=== PATIENT | female | born 1960 | race Hispanic/Latino ===

== ENCOUNTER 2024-02-21 21:36 | Observation (INO) | payer OTHER, SELFPAY ==
[2024-02-21] VITALS (9 sets, daily range): BP systolic 106–148; BP diastolic 41–74; BMI 36.8
[2024-02-21 15:47] LABS: % Basophils 0.3 % (0-2); % Eosinophils 1.1 % (0-6); % Immature Granulocytes 0.3 % (0-0.5); % Lymphocytes 41.9 % (20.5-51.1); % Monocytes 6.3 % (1.7-9.3); % Neutrophils 50.1 % (42.2-75.2); Absolute Eosinophils 0.1 10^3/uL (0-0.7); Absolute Lymphocytes 3.1 10^3/uL (1.2-3.4); Absolute Monocytes 0.5 10^3/uL (0.1-0.6); Absolute Neutrophils 3.7 10^3/uL (1.4-6.5); Hematocrit 45.2 % (37.0-47.0); Hemoglobin 14.5 g/dL (12.0-16.0); Mean Corp Hgb Conc. 32.1 g/dL (33.0-37.0); Mean Corpuscular Hgb 28.5 pg (27.0-31.0); Mean Corpuscular Volume 88.8 fL (81.0-99.0); Nucleated Red Blood Cells % 0 %; Platelet Count 228 10^3/uL (130-400); Red Blood Cell Count 5.09 10^6/uL (4.20-5.40); Red Cell Dist. Width 14.3 % (11.5-14.5); White Blood Cell Count 7.3 10^3/uL (4.8-10.8)
[2024-02-21 16:06] LABS: ALT (SGPT) 14 U/L (0-35); AST (SGOT) 23 U/L (14-36); Albumin 4.1 g/dl (3.5-5.0); Alkaline Phosphatase 80 U/L (38-126); Blood Urea Nitrogen 17 mg/dl (7-17); Calcium 9.4 mg/dl (8.4-10.2); Carbon Dioxide 24 mmol/L (22-30); Chloride 108 mmol/L (98-107); Estimated Creatinine Clearance 62 ml/min; Glucose 95 mg/dl (70-99); Potassium 4.2 mmol/L (3.5-5.1); Sodium 140 mmol/L (135-145); Total Bilirubin 0.6 mg/dl (0.2-1.3); Total Protein 6.9 g/dl (6.3-8.2); eGFR > 60.00
[2024-02-21 16:11] LABS: Troponin I < 0.012 ng/ml
--- NOTE | 2024-02-21 16:11 | ED.GENMED ---
History of Present Illness
<Kassandra Garsia PA-C - Last Filed: 02/21/24 21:02>
General
Chief Complaint: Chest Pain
Source: patient
Exam Limitations: none
Time Seen by Provider: 02/21/24 16:08
Nursing documentation reviewed up to this point in time: agreed with
Travel History
Have you had any contact with someone who has COVID-19?: No
Do you have any symptoms of coronavirus? Fever > 100 degrees, chills, cough, shortness of breath, sore throat, loss of taste or smell, muscle aches, or headache?: No
History of Present Illness
History of Present Illness:
This is a 63-year-old female with a past medical history of coronary artery disease, CVA, COPD, GERD who is presenting emergency department today with chest pain shortness of breath and nausea throughout the day today. Patient states that she has a
history of coronary artery disease and had a coronary artery bypass graft done last year on March 19. Patient states that she had mild chest pain after that but for months she felt well until today when she started to have a significant mount of
chest pressure around 9 AM this morning and it has been constant. Patient states that it gets worse with movement. Patient also has associated nausea, and a general sensation of feeling unwell and weak. EMS was called and patient got aspirin and
1 nitro en route which did help relieve some of her chest pain but her symptoms did return. She now complains of a headache. Patient also admits to right-sided weakness. She states that she has had this for the past 2 weeks, however today is
significantly worse. She feels weakness and paresthesias from her head, the right side of her face, her right arm, and right leg. Patient denies any syncopal episodes, vomiting, abdominal pain.
Review of Systems
<Kassandra Garsia PA-C - Last Filed: 02/21/24 21:02>
Review of Systems
All Other Systems: ROS reviewed and negative except as documented in HPI and ROS
Phy Exam
<Kassandra Garsia PA-C - Last Filed: 02/21/24 21:02>
Physical Exam
Physical Exam:
General: Patient is well appearing and in no acute distress; non-toxic
Skin: Warm and dry, no rashes or lesions
Head: Normocephalic, atraumatic
Eyes: Sclera non-icteric. EOMs intact. PERRLA.
Cardiac: Regular rate and rhythm, no murmurs. No tenderness to palpation of the external chest wall.
Peripheral Vascular: No lower extremity edema. 2+ DP pulses b/l.
Pulm: Normal respiratory effort, no wheezes, rales, or rhonchi heard on exam.
Abdomen: No abdominal tenderness
Neuro: CN II-XII intact, no focal neurologic deficits. Finger to nose, heel to aldana testing intact. 4/5 strength in right upper and lower extremity, 5/5 strength in left upper and left lower extremity.
Psychiatric: Appropriate mood and affect.
Scores
<Kassandra Garsia PA-C - Last Filed: 02/21/24 21:02>
Heart Score for Chest Pain Patients
STEMI patient?: No
History: Moderately Suspicious
ECG: Normal
Age: >45 - <65 years
Risk Factors: >/= 3 Risk Factors or History of CAD
Troponin: </= Normal Limit
Heart Score for Chest Pain Patients: 4
Heart Score Risk: 20.3% MACE over next 6 weeks
<Gael Marie MD - Last Filed: 02/22/24 14:49>
Heart Score for Chest Pain Patients
Heart Score for Chest Pain Patients: 4
Heart Score Risk: 20.3% MACE over next 6 weeks
Course
<Kassandra Garsia PA-C - Last Filed: 02/21/24 21:02>
Orders/Labs/Results
Orders:
Orders
05/02/24 Dinner
NPO
Allow oral meds: Yes
Allow clear liquids: Sips of Clears
NPO with Ice Chips: Yes
02/21/24 15:35
Electrocardiogram (*1) Urgent
Reason for Study: Chest Pain
EKG- Treatment ONCE
02/21/24 15:39
Complete Blood Count/With Diff Urgent
Comprehensive Metabolic Panel Urgent
Glycohemoglobin (HgbA1c) Urgent
Troponin I Urgent
02/21/24 16:33
CT Head W/o Iv Contrast Urgent
Comment:
Reason For Exam: right sided weakness
02/21/24 16:34
EKG- Treatment ONCE
02/21/24 17:12
Acetaminophen [Tylenol] 1,000 mg PO NOW STA
02/21/24 18:27
Troponin I Urgent
02/21/24 18:29
Electrocardiogram (*1) Urgent
Reason for Study: Chest Pain
02/21/24 19:27
Aspirin 325 mg PO NOW STA
Clopidogrel Bisulfate [Plavix] 300 mg PO NOW STA
02/21/24 20:39
Mag Hydrox/Al Hydrox/Simeth [Maalox] 30 ml Phenobarb/Hyoscy/Atropine/Scop [] 10 ml Viscous Lidocaine 2% [Xylocaine Viscous Cup] 10 ml PO NOW
02/21/24 20:40
NEUROLOGY CONSULT Routine
Consulting Provider: Jorge Peng
Was physician already notified: Yes
Reason for consult: right sided wekaness x 2 weeks
Pantoprazole [Protonix IV] 40 mg IV NOW STA
02/21/24 20:41
Admit/Transfer Patient As Directed
Co-Sign Provider:
Level of Care: Observation services
Assign to:: Telemetry
Physician / Group: patricia martinez
Diagnosis: chest pain concern gerd vs nonischemic, r side weakness concern cva tia
Reason for Telemetry: Arrhythmia
Date to Stop Telemetry: 02/24/24
Time to Stop Telemetry: 11:00
Reason for Hospitalization: chest pain concern gerd vs nonischemic, r side weakness concern cva tia
Code Status As Directed
Resuscitation Status: Full Code
02/21/24 20:49
0.9% Sodium Chloride [Nss (Preservative Free)] 10 ml IV NOW STA
02/21/24 21:26
Mag Hydrox/Al Hydrox/Simeth [Maalox] 30 ml .ROUTE .STK-MED ONE
Phenobarb/Hyoscy/Atropine/Scop [] 10 ml .ROUTE .STK-MED ONE
Viscous Lidocaine 2% [Xylocaine Viscous Cup] 15 ml .ROUTE .STK-MED ONE
02/21/24 21:33
Troponin I Q6H
02/21/24 22:00
Flush (0.9% Sodium Chloride) [Flush (Nss)] See Dose Instructions IV PER PROTOCOL
02/21/24 23:20
Acetaminophen [Tylenol/Feverall] 650 mg RECTAL Q4HPRN PRN
Acetaminophen [Tylenol] 650 mg PO Q4HPRN PRN
02/21/24 23:20
Case Management Consult ONCE
Case Management Consult: Discharge Planning
Comment: stroke/tia
DIETARY CONSULT Routine
Reason for Consult: stroke/TIA
Activity As Directed
Activity Level: As Tolerated
NIH Stroke Scale As Directed
Directions: Per protocol
Comment: every shift and with any change in condition or mental status
Neurological Checks As Directed
Frequency: q4h
Additional Instructions:: q4h x 24h upon admission to the floor, then qshift & with any change in condition
and mental status
Patient Education As Directed
Type: Stroke education packet
Comment: provide to patient and family
Pneumatic Compression Sleeves As Directed
Type: Knee high
Vital Signs As Directed
Frequency: Per unit guidelines
Ot Eval And Treat Routine
Pt Eval And Treat Routine
Activity Level: As Tolerated
Speech Therapy Eval & Treat Routine
DX Deep Vein Thrombosis Video Routine
02/22/24 05:12
B12 [Vitamin B12] IN AM
Cardiovascular Evaluation IN AM
Complete Blood Count/With Diff IN AM
VerifyNow Aspirin IN AM
Pt on daily regimen OR been given initial dose of aspirin?: Yes
02/22/24 08:00
0.9% Sodium Chloride [Nss (Preservative Free)] 10 ml IV DAILY
Aspirin Chewable [Low Strength Aspirin] 81 mg PO DAILY
Clopidogrel Bisulfate [Plavix] 75 mg PO DAILY
Pantoprazole [Protonix IV] 40 mg IV DAILY
02/24/24 11:00
DC Protocol for Telemetry ONCE
Abnormal Lab Results
02/21/24
15:39
MCHC 32.1 L g/dL
(33.0-37.0)
MPV 11.0 H fL
(7.4-10.4)
Chloride 108 H mmol/L
(98-107)
Hemoglobin A1c 6.0 H %
(4.0-5.6)
02/21/24 15:39
02/21/24 15:39
Vital Signs
Initial and Last Documented VS:
Initial Vital Signs
Pulse Resp Pulse Ox
72 20 96
02/21/24 15:39 02/21/24 15:39 02/21/24 15:39
Last Documented Vital Signs
Temp Pulse Resp BP Pulse Ox
98.4 F 60 16 154/82 100
02/22/24 12:56 02/22/24 12:56 02/22/24 12:56 02/22/24 12:56 02/22/24 12:56
<Gael Marie MD - Last Filed: 02/22/24 14:49>
Orders/Labs/Results
Orders:
Orders
02/21/24 Dinner
NPO
Allow oral meds: Yes
Allow clear liquids: Sips of Clears
NPO with Ice Chips: Yes
02/21/24 15:35
Electrocardiogram (*1) Urgent
Reason for Study: Chest Pain
EKG- Treatment ONCE
02/21/24 15:39
Complete Blood Count/With Diff Urgent
Comprehensive Metabolic Panel Urgent
Glycohemoglobin (HgbA1c) Urgent
Troponin I Urgent
02/21/24 16:33
CT Head W/o Iv Contrast Urgent
Comment:
Reason For Exam: right sided weakness
02/21/24 16:34
EKG- Treatment ONCE
02/21/24 17:12
Acetaminophen [Tylenol] 1,000 mg PO NOW STA
02/21/24 18:27
Troponin I Urgent
02/21/24 18:29
Electrocardiogram (*1) Urgent
Reason for Study: Chest Pain
02/21/24 19:27
Aspirin 325 mg PO NOW STA
Clopidogrel Bisulfate [Plavix] 300 mg PO NOW STA
02/21/24 20:39
Mag Hydrox/Al Hydrox/Simeth [Maalox] 30 ml Phenobarb/Hyoscy/Atropine/Scop [] 10 ml Viscous Lidocaine 2% [Xylocaine Viscous Cup] 10 ml PO NOW
02/21/24 20:40
NEUROLOGY CONSULT Routine
Consulting Provider: Jorge Peng
Was physician already notified: Yes
Reason for consult: right sided wekaness x 2 weeks
Pantoprazole [Protonix IV] 40 mg IV NOW STA
02/21/24 20:41
Admit/Transfer Patient As Directed
Co-Sign Provider:
Level of Care: Observation services
Assign to:: Telemetry
Physician / Group: patricia martinez
Diagnosis: chest pain concern gerd vs nonischemic, r side weakness concern cva tia
Reason for Telemetry: Arrhythmia
Date to Stop Telemetry: 02/24/24
Time to Stop Telemetry: 11:00
Reason for Hospitalization: chest pain concern gerd vs nonischemic, r side weakness concern cva tia
Code Status As Directed
Resuscitation Status: Full Code
02/21/24 20:49
0.9% Sodium Chloride [Nss (Preservative Free)] 10 ml IV NOW STA
02/21/24 21:26
Mag Hydrox/Al Hydrox/Simeth [Maalox] 30 ml .ROUTE .STK-MED ONE
Phenobarb/Hyoscy/Atropine/Scop [] 10 ml .ROUTE .STK-MED ONE
Viscous Lidocaine 2% [Xylocaine Viscous Cup] 15 ml .ROUTE .STK-MED ONE
02/21/24 21:33
Troponin I Q6H
02/21/24 22:00
Flush (0.9% Sodium Chloride) [Flush (Nss)] See Dose Instructions IV PER PROTOCOL
02/21/24 23:20
Acetaminophen [Tylenol/Feverall] 650 mg RECTAL Q4HPRN PRN
Acetaminophen [Tylenol] 650 mg PO Q4HPRN PRN
02/21/24 23:20
Case Management Consult ONCE
Case Management Consult: Discharge Planning
Comment: stroke/tia
DIETARY CONSULT Routine
Reason for Consult: stroke/TIA
Activity As Directed
Activity Level: As Tolerated
NIH Stroke Scale As Directed
Directions: Per protocol
Comment: every shift and with any change in condition or mental status
Neurological Checks As Directed
Frequency: q4h
Additional Instructions:: q4h x 24h upon admission to the floor, then qshift & with any change in condition
and mental status
Patient Education As Directed
Type: Stroke education packet
Comment: provide to patient and family
Pneumatic Compression Sleeves As Directed
Type: Knee high
Vital Signs As Directed
Frequency: Per unit guidelines
Ot Eval And Treat Routine
Pt Eval And Treat Routine
Activity Level: As Tolerated
Speech Therapy Eval & Treat Routine
DX Deep Vein Thrombosis Video Routine
02/22/24 05:12
B12 [Vitamin B12] IN AM
Cardiovascular Evaluation IN AM
Complete Blood Count/With Diff IN AM
VerifyNow Aspirin IN AM
Pt on daily regimen OR been given initial dose of aspirin?: Yes
02/22/24 08:00
0.9% Sodium Chloride [Nss (Preservative Free)] 10 ml IV DAILY
Aspirin Chewable [Low Strength Aspirin] 81 mg PO DAILY
Clopidogrel Bisulfate [Plavix] 75 mg PO DAILY
Pantoprazole [Protonix IV] 40 mg IV DAILY
02/24/24 11:00
DC Protocol for Telemetry ONCE
Abnormal Lab Results
02/21/24
15:39
MCHC 32.1 L g/dL
(33.0-37.0)
MPV 11.0 H fL
(7.4-10.4)
Chloride 108 H mmol/L
(98-107)
Hemoglobin A1c 6.0 H %
(4.0-5.6)
02/21/24 15:39
02/21/24 15:39
Vital Signs
Initial and Last Documented VS:
Initial Vital Signs
Pulse Resp Pulse Ox
72 20 96
02/21/24 15:39 02/21/24 15:39 02/21/24 15:39
Last Documented Vital Signs
Temp Pulse Resp BP Pulse Ox
98.4 F 60 16 154/82 100
02/22/24 12:56 02/22/24 12:56 02/22/24 12:56 02/22/24 12:56 02/22/24 12:56
<Kassandra Garsia PA-C - Last Filed: 02/21/24 21:02>
MDM/Problems Addressed
Differential Diagnosis Includes:
ddx include ACS, stroke, TIA, tension headache, pulmonary embolism, functional neurologic disorder,
<Kassandra Garsia PA-C - Last Filed: 02/21/24 21:02>
*Critical Care Note
Total Time (30-74mins, 75-104mins- exclusive of procedures): Not Applicable
<Kassandra Garsia PA-C - Last Filed: 02/21/24 21:02>
Patient Management
Escalation/DeEscalation of care consider admission/obs:
This is a 63-year-old female with a past medical history of coronary artery disease, CVA, COPD, GERD who is presenting emergency department today with chest pain shortness of breath and nausea throughout the day today. Patient is also had 2 weeks
of right-sided weakness and paresthesias that got significantly worse today. Patient on exam does have objective right-sided weakness, regular rate and rhythm, no tenderness palpation external chest wall. Her initial EKGs and troponins were within
normal limits. Concerning for unstable angina, considering she had similar pain last year prior to her CABG. Considering her significant risk factors, we will admit her to the hospital for further cardiac workup. In addition, I spoke with
neurologist on-call via [place] text regarding her right-sided weakness. Patient was placed on aspirin and Plavix. Neuro aware and did not recommend any additional imaging or workup at this time, he will see patient in consult. Patient agreement
with plan. Accepted by hospitalist.
ED Attending Note
<Kassandra Garsia PA-C - Last Filed: 02/21/24 21:02>
-
Portions of this chart may have been created with voice recognition software.� Occasional wrong word or��sound alike� substitutions may have occurred due to the inherent limitations of voice recognition software.
<Gael Marie MD - Last Filed: 02/22/24 14:49>
ED Attending Note
Patient seen and examined by attending physician: Yes
ED Attending Note:
Patient with history of TIA, coronary artery disease, status post CABG in February 2023, presents to ED secondary to intermittent chest pain since this morning, along with worsening right-sided numbness and weakness over the past 2 weeks. In addition,
family endorses intermittent episodes of word finding difficulties. Patient denies shortness of breath. Denies nausea or vomiting. Denies diaphoresis. Chest pain described as pressure, in the middle of chest, nonradiating, without any
alleviating or exacerbating factors. Patient was given sublingual nitroglycerin by paramedics, with improvement in symptoms. Denies recent illness. Denies recent travel or surgery. Denies recent change in medications or diet. Patient is
currently visiting from [facility].
Physical Exam
General: no apparent distress, not acutely ill. afebrile
Head: nc/at. eomi
Neck: supple. normal range of motion.
Heart: s1/s2 regular rate and rhythm, no murmur. equal radial pulses.
Lungs: no acute respiratory distress. clear bilaterally. chest wall nontender to palpation.
Abdomen: normal bowel sounds. not tender.
Neuro: alert and oriented x 3. normal speech. RUE/RLE motor: 4/5. Decreased sensation RUE/RLE.
Skin: no rash
Psychiatric: well kept. interactive and cooperative
Extremities: no edema. no calf tenderness.
Patient presenting with multiple complaints, difficult to ascertain whether or not her symptoms are related or independent when allowed. However, patient does have significant risk factors for both CVA as well as ACS.
CT head: Old infarct noted.
Discussed with Dr. Peng, neurology, who recommends admission for further evaluation and treatment. Will start aspirin and Plavix.
Patient is not a candidate for tenecteplase, as symptoms have started over 2 weeks ago.
Discharge Plan
Departure
Patient Disposition: Admit
Date of Disposition: 02/21/24
Time of Disposition: 19:49
Admit to: Med/Surg
Presentation/result/management discussed w/ accepting MD/DO: Hospitalist
Patient with high blood pressure during this ER visit?: Yes
Condition: Fair
Discharge Problem:
Chest pain, Right sided weakness
Interventions
Interventions:
*Risk Screen - Suicide Last Done: 02/21/24 15:47
*General Assessment Last Done: 02/21/24 15:46
*Neglect/Abuse Screening Last Done: 02/21/24 15:47
ED- Fall Risk Assessment Last Done: 02/21/24 17:28
*ED COVID-19 Vaccine History Last Done: 02/22/24 00:08
*Nursing Disposition Last Done: 02/22/24 12:36
ED- Cardiac Assessment Last Done: 02/21/24 17:27
Discharge Date and Time
Discharge Date/Time: 02/22/24 12:36
[2024-02-21] MEDS: TYLENOL 1000 MG PO (17:21)
[2024-02-21 18:55] LABS: Troponin I < 0.012 ng/ml
[2024-02-21] MEDS: PLAVIX 300 MG PO (19:35)
--- NOTE | 2024-02-21 19:59 | HPS.HSE ---
Addendum entered and electronically signed by Fadi Balderrama DO 02/21/24 21:42:
Patient seen and examined independently. Agree with findings and plan as set forth by AUTUMN Hayes.
Patient is a 63y F with PMH significant for ASCVD s/p CABG 1 year ago, PTSD and obesity who presents to ED complaining of 2 weeks of right-sided numbness and tingling and chest pain that has been intermittent for some time - but seemed worse
today. Patient lives in the [facility] and has been seen previously in the [facility]. Today while experiencing her symptoms, she decided to go for a drive and ended up here at .
Despite driving for hours, patient now reports significant weakness of her R side including the RLE. She notes intermittent chest pain - currently 03/31. She has known Schatzki's ring and GERD but is not compliant with prescribed acid suppression
regimen. She is scheduled for GI evaluation / endoscopy later this month.
In the ED today, EKG is unremarkable, troponin is undetectable x [address] head shows no acute findings - but does show area of L cerebellar abnormality c/w prior CVA.
Ass:
Atypical Chest Pain
ASCVD
Right Sided Weakness
Abnormal CT Head
DM-II
GERD
Anxiety / Depression / PTSD
Obesity due to excess calories
Plan:
Observe overnight for further evaluation and treatment.
Follow serial troponin for any changes (neg x 2 so far).
? GI origin for her chest pain - but does have prior history of CABG one year ago.
MRI in AM. CT images with L cerebellar abnormality which could explain her R sided symptoms?
Neuro evaluation.
Follow for any new / worsening symptoms.
Continue DAPT for now.
PT / OT evaluations.
Original Note:
Family Physician
-
Family Physician: Donavan Sewell
Chief Complaint
-
Chest pain, right-sided weakness x 2 weeks
History of Present Illness
63-year-old female complaining of chest pain epigastric to neck she reports this feels similar to her chest pain she had last year mar 19 2023 that required CABG at [facility]. She also complains of right-sided paresthesias and weakness
ongoing for the past 2 weeks. She states she lives in [facility] today she felt weak weakness on the side of her face again her asked her to smile told her she was fine. She states she then got in the car to take a drive
during her drive that lasted over 1 hour from where she lives. She developed epigastric chest pain to her neck waxing and waning with nausea. She states the pain was so intense that she had an overall sense of weakness. She currently reports the
pain is6 out of 10 but is calm in appearance no diaphoresis. She has history of GERD but is noncompliant with any medication. She states she saw ENT due to having difficulty swallowing some pills and made an appointment with GI for EGD at . [facility] on March 14. She denies current headache, blurred vision, dizziness, shortness breath, cough, diarrhea, urinary symptoms, fever, chills . The patient reports in April 2021 she had a lightheaded sensation if she turned her head to
the left she reports a doctor came to the hotel she was staying at evaluated her and gave her an injection to help her relax. This was while she was in the [facility]. Upon returning she went to [facility] had MRI May 21, 2021
that was negative for stroke. It did show 3 mm calcified focus right frontal region compatible with small meningioma
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
Medical History
Past Medical History
Past Medical History: Reports Other
Additional Past Medical History:
CAD/CABG February 2023 [facility]
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
COPD
GERD
anxiety/depression/ PTSD
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
Obesity
Past Surgical History: Reports Other
Additional Past Surgical History:
[facility]
Hysterectomy
Appendectomy
Social History
Tobacco: Non-smoker
Alcohol: Occasional
Drug: None
Personal:
Living: With Family ()
Employment: Retired ()
Family History
Family History: Other (Mother father 3 sisters 3 brothers all history DM2, 1 sister age 47 unknown history of COPD bedridden, father living age 95 recent AR with stent, mother CVA x 2 EGD 6 hypertension DM2)
Allergies / Home Medications
Allergies reflects when Allergies were last updated in [employer]
Home Medications with original date entered in [employer]
Allergy/Medication List:
Allergies
Allergy/AdvReac Type Severity Reaction Status Date / Time
propofol Allergy Unknown Verified 02/21/24 15:36
Oiubkpe-AEA-TwK Reductase Allergy Unknown Verified 02/21/24 15:36
Inhibitor
Home Medications
Praluent Pen 1 dose SC Q2W 02/21/24
ascorbic acid (vitamin C) 2.5 ml PO DAILY AT 0700 02/21/24
aspirin 81 mg chewable tablet 81 mg PO DAILY 02/21/24
metformin 500 mg tablet 500 mg PO DAILY 02/21/24
vitamin Y44-ncdkt acid 1,000 mcg sublingual DAILY 02/21/24
Review of Systems
-
History Source: Patient
A 12 point ROS was completed and negative except as noted: Yes
Constitutional: Denies Fever or Chills
EENT: Reports Other (Right side face numbness/tingling); Denies Sore Throat or Runny Nose
Respiratory: Denies Cough or Trouble Breathing
Cardiac: Reports Chest Pain (Epigastric); Denies Diaphoresis, Palpitations or Syncope
Abdomen/GI: Reports Abdominal Pain (Epigastric) and Nausea; Denies Vomiting, Diarrhea, Constipated or Bloody Stools
: Denies Dysuria, Frequency, Flank Pain, Incontinence or Difficulty Voiding
Musculoskeletal: Denies Joint Pain or Edema
Skin: Denies Itching or Rash
Neurological: Reports Weakness (Reports generalized); Denies Dizzy or Headache
Endocrine: Reports No Symptoms
Hematologic/Lymphatic: Reports No Symptoms
Psych: Reports Calm
Physical Exam
Vital Signs
Vital Signs
Temp Pulse Resp BP Pulse Ox
98.6 F 64 15 127/64 98
02/21/24 15:41 02/21/24 17:30 02/21/24 17:30 02/21/24 17:04 02/21/24 17:30
Physical Exam
General: Comfortable, Conversant and Pain (Reports pain on and off); No Chills
HEENT: NormoCephalic, Anicteric, Moist mucous membranes, PERRLA, Dowell Conjunctivae, No Ptosis, Pharyngeal Efythema, Neck Nontender and Other (Tongue midline, EOMs intact)
Respiratory: Clear; No Wheezes, Rales or Rhonchi
Cardiac: S1/S2 and Regular Rhythm; No Murmur, Rub, Gallop or Peripheral Edema
Breast: Deferred by me
GI: Soft, Non Tender, Non Distended, Normal Bowel Sounds and No Hepatosplenomegaly
Rectal: Deferred by Provider
Genito-urinary: Deferred by me
Musculoskeletal: No Clubbing, No Cyanosis and No Edema
Skin: Warm, Dry and Rash
Neuro: AO x 3, Nonfocal/grossly intact, Cranial Nerves Intact, No Sensory Deficits and Other (Patient with right arm and right leg weakness 4 out of 5 but when distracted examination is normal); No Slurred Speech, Facial Droop or Tremors
Psych: Calm
Laboratory Results
-
02/21/24 15:39
02/21/24 15:39
Laboratory Results
Total Bilirubin 0.6 mg/dl (0.2-1.3) 02/21/24 15:39
AST 23 U/L (14-36) 02/21/24 15:39
ALT 14 U/L (0-35) 02/21/24 15:39
Alkaline Phosphatase 80 U/L (38-126) 02/21/24 15:39
Troponin I < 0.012 ng/ml 02/21/24 18:27
Data Reviewed
-
CT Scan: Report Reviewed by me
Lab Data: Labs Reviewed by me
Impression/Plan
-
Impression/plan:
Observation telemetry
#Chest pain/nonischemic myocardial injury concern for gerd
#CAD/CABG x [address] [facility]
Troponin less than 0.012 will trend
Follow EKG
-Consult CBC cardiology
-Will give GI cocktail
-Continue aspirin 81 mg daily, patient on Praluent pen every 2 week
-Reports cannot take metoprolol as it makes her feel palpitations
EKG: NSR with sinus arrhythmia 65 bpm, QTc 438 MS otherwise normal
#Right-sided weakness/paresthesia concern for CVA/TIA
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
BP 127/64
Symptoms x 2 weeks not tPA candidate
-Consult neurology
-MRI/MRA brain neck
-Neurochecks every 4 hours
-Check lipid profile, HgbA1c
-Aspirin 324 mg now, 81 mg daily, verify aspirin
-Plavix 300 mg now, 75 mg daily
-Check B12 level
-PT/OT/case management consult
CT head: No acute intracranial abnormality
4 mm focus diminished attenuation left cerebellum related to prior small chronic infarct
5 mm calcification anterior superior right paramidline frontal region possibly osseous/Exostosis or extra-axial meningioma
Review of patient's MRI May 21, 2021 from [facility]: No acute infarct, nonspecific minimal white matter T2 foci related to chronic small vessel disease, 3 mm calcified focus in the anterior right frontal region with a small meningioma without mass
effect or edema chronic maxillary sinus disease
#DM2
-Accu-Cheks with SSI, check HgbA1c
-Hold metformin 500 mg daily
#HLD
Check lipid profile
-Patient takes Praluent pen 1 dose every 2 weeks last dose 02/07/2024
#COPD-no acute exacerbation
Reports never smoker was told 20 years ago she had this
#GERD
-Noncompliant with PPI or H2 edmond
Will give IV Protonix now and daily including GI cocktail
#Anxiety/depression/ PTSD
-No current medication
#Vitamin B12 deficiency reported
Patient takes sublingual B12 daily and vitamin C 2.5 mL / 500 mg daily
Check B12 level
#Obesity due to excess calorie consumption�BMI 36.8 kg
Weight loss recommended, low-fat diabetic diet
DVT prophylaxis
SCDs
Full code
[2024-02-21] MEDS: PROTONIX IV 40 MG IV (21:27)
[2024-02-21] MEDS: MAALOX 50 PO (21:27)
[2024-02-21 22:08] LABS: Troponin I < 0.012 ng/ml
[2024-02-21] MEDS: NSS (PRESERVATIVE FREE) 10 ML IV (23:11)
[2024-02-22] VITALS (12 sets, daily range): BP systolic 111–154; BP diastolic 47–82; PULSE 58; O2SAT 97; BMI 35.9
[2024-02-22 05:21] LABS: % Basophils 0.3 % (0-2); % Eosinophils 1.4 % (0-6); % Immature Granulocytes 0.5 % (0-0.5); % Lymphocytes 44.9 % (20.5-51.1); % Monocytes 7.4 % (1.7-9.3); % Neutrophils 45.5 % (42.2-75.2); Absolute Eosinophils 0.1 10^3/uL (0-0.7); Absolute Lymphocytes 2.9 10^3/uL (1.2-3.4); Absolute Monocytes 0.5 10^3/uL (0.1-0.6); Hematocrit 40.2 % (37.0-47.0); Hemoglobin 13.2 g/dL (12.0-16.0); Mean Corp Hgb Conc. 32.8 g/dL (33.0-37.0); Mean Corpuscular Hgb 28.9 pg (27.0-31.0); Mean Platelet Volume 11.2 fL (7.4-10.4); Nucleated Red Blood Cells % 0 %; Platelet Count 217 10^3/uL (130-400); Red Blood Cell Count 4.57 10^6/uL (4.20-5.40); Red Cell Dist. Width 14.3 % (11.5-14.5); White Blood Cell Count 6.5 10^3/uL (4.8-10.8)
[2024-02-22 05:54] LABS: HDL Cholesterol 52 mg/dl; LDL Cholesterol, Calculated 87 mg/dl; Total Cholesterol 161 mg/dl (50-199); Triglyceride 112 mg/dl (10-149); Very Low Density Lipoprotein 22 mg/dl (0-30)
[2024-02-22 06:42] LABS: Vitamin B12 916 pg/ml (239-931)
--- NOTE | 2024-02-22 07:56 | CON.NEURO4 ---
Addendum entered and electronically signed by Jorge Peng MD 02/22/24 12:13:
I saw and evaluate the patient I reviewed the note by Sylvia Jones agree the findings the following comments:
The patient is a right handed 63-year-old woman with a past medical history of hkb-dumfaay-crsjtbrtz diabetes mellitus, history of migraine headaches with aura, possible TIA previously, coronary artery disease status post CABG, complex regional pain
syndrome on the right shoulder, and GERD who presents to the hospital with intermittent symptoms of right arm and leg weakness and sensory change along with sensory change to right side of face, in addition to uncomfortable burning sensation in the
head and brain.
Patient reports she had some difficulty remembering the exact circumstances of the symptoms starting but does not recall any obvious illness or inciting traumatic or stressful event. Her symptoms began around 2 weeks ago and felt like they happened
while she was sleeping. Is difficult for the patient to describe but she just had a feeling of feeling unwell in general. She began to experience heaviness on the right arm and leg which was intermittent, intermittent right-sided face and scalp
paresthesia as well. She had a very uncomfortable feeling of feeling like her head or brain is on fire and this seems to worsen with thinking hard. She does feel like there is a mild discomfort to light as well as some degree of phonophobia and
nausea but no vomiting she reports that Sunday earlier this week seem to be a good day without much symptoms. She went for a drive this morning says that sometimes makes her feel better and when she was in a local store felt like she needed to
seek medical attention when talking with one of the staff members there.
She takes aspirin every day avoids NSAIDs. [place] years [place] she reports around 6 days of dizziness and walking difficulty was told that this was possibly a TIA.
She describes a history of significantly disabling migraine headaches in the past when she did have some vision changes, photophobia phonophobia nausea and severe headache pain.. She had previously been tried on a couple of triptan medications
including Imitrex and Maxalt and topiramate as well. Reports having had evaluation by neurologist previously for some right-sided and left-sided hand paresthesias and was diagnosed with minor carpal tunnel syndrome.
Reports she feels like her health has not been very good for a few months now.
She reports being diagnosed with complex regional pain syndrome on the right shoulder after shoulder surgery.
Neurologic examination shows normal mental status, no aphasia, praxis normal, adequate historian, fair insight.
Cranial nerve examination shows normal cranial nerves II through XII there is no facial asymmetry or dysarthria or sensory change to light touch in the face.
Motor examination shows normal bulk and tone with some obvious downward drift of the right arm and some weakness of shoulder abduction and arm flexion, dog food dough mixer strength is normal, there is some weakness 4/5 to hip flexion. Patient shows positive
Murray sign on the right leg with ability to extend the leg into the bed with full strength when lifting the left leg and hip flexion, but on direct confrontation of right hip extension into the bed has some weakness. Reflexes 2+ biceps triceps
brachialis and patella, subjective decreased light touch on the right arm. Weakness limits finger-nose testing in the right arm no ataxia in the left arm finger-nose testing.
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 Possibly a right-sided parasagittal meningioma as seen with calcification in that area.
Assessment: Rule out ischemic stroke on the left side of the brain. Cerebellar infarct on the left would not produce the symptoms.
I suspect that either migraine type disorder and additionally functional neurologic disorder may be present, possibly triggered by chest pain history of right sided shoulder complex regional pain syndrome.
Recommendations
-Continue DAPT therapy for now, if brain MRI is negative for acute stroke then can stop clopidogrel from a neurologic perspective as this is not TIA
-Would start standing Tylenol 1000 mg every 6 hours for the next 1 to 2 days, give 1 dose 10 mg Compazine
-If MRI brain is negative for acute stroke then would give 50 mg sumatriptan p.o., can repeat the dose once after 2 hours if there is still some degree of burning head pain present
-Discussed the possibility for functional neurologic disorder and that this is treatable mainly with physical therapy
-Evaluation for chest pain
-Video swallow examination study results noted
Will follow up after MRI studies
Original Note:
Documented by User: Sylvia Darling NP 02/22/24 11:37
Consultation - Neurology 4
-
CONSULTING PHYSICIAN: Berry Peng MD
REFERRING PHYSICIAN: Hospitalists/AUTUMN Hayes
DICTATED BY: AUTUMN Nielsen
DATE/TIME OF REQUEST: 02/21/24
DATE/TIME OF CONSULTATION: 02/22/24
Reason for Consultation: Right-sided weakness
History of Present Illness:
This is a 63-year-old right-handed female who has presented to the hospital on 02/21/24 with report of two weeks of right-sided weakness and tingling, and acute onset chest pain and nausea. Patient reports that about two weeks ago she noticed that
her right arm and leg felt weak/heavy compared to her left side. She also notes a couple instances of right arm tingling at night. Yesterday (02/21/24), she reports that her right arm and leg suddenly felt much weaker. They feel heavy/foreign to her
and she had a hard time lifting her arm to brush her teeth. She also noted a new tingling/cold sensation on the right face. She had chest discomfort and nausea but not vomiting, which felt similar to symptoms leading up to her CABG in February 2023,
which prompted her to come to the ER for evaluation. CT head was obtained on arrival and is negative for any acute abnormalities but demonstrates a possible scar in her left cerebellum and a possible right frontal meningioma. She is not a candidate
for TNK/IAT due to outside of time window. She was taking aspirin 81mg daily for cardiac purposes. She was loaded with DAPT in the ER.
Currently she reports a burning sensation deep in her left central brain. Thinking/concentrating makes this discomfort worse. She notes having this 'brain fire' sensation twice before in the past two weeks. She notes mild photophobia and
hypersensitivity to sounds. She denies any dizziness, vision changes, speech difficulty, shortness of breath, and palpitations. She notes several years of swallow difficulty/feeling that food gets stuck in her esophagus. She also notes a significant
history of migraine starting at age 12. Her migraines were associated with photo/phonophobia, nausea, and seeing halos in her vision. Her last migraine was 6 years ago. She never had stroke symptoms with her migraines. She also notes 5-6 days of
balance impairment in 2020 while she was in a [place]. She had an MRI brain two weeks later when she returned to the [place] that was negative, but she was told she may have had a TIA. Her balance seemed to improve after two weeks of
prednisone, meclizine did not help her symptoms.
Past Medical History: TIA 2020, CAD, COPD, NIDDM, GERD/Schatzki ring, anxiety, depression, PTSD, B12 deficiency, CRPS following R RC repair, IBS
Surgical History: CABG x4 02/2023, ROBIN age 26,
Family History: Father, sisters, and brother- migraines. Mother- CVA age 86.
Social History: Denies tobacco and illicit drug use. Rare alcohol.
Allergies: Propofol, statins.
Home Medications: See below.
Review of Symptoms:
Patient denies any fever, headache, chest pain, shortness of breath, GI or symptoms.
�Per the HPI.�All systems are reviewed negative except above.
Physical Exam:
The patient is afebrile, abdomen is nondistended, breathing is unlabored, skin is warm and dry, no edema.
NIH Stroke Scale:
I performed the NIH stroke scale on the patient on 02/22/24 at 0900. The patient scored 3 points on the NIH stroke scale assessment, which were assigned as follows: See below.
Neurologic Examination:
The patient is awake, alert and oriented x 3. She is able to follow commands and answer questions appropriately. There is no aphasia or dysarthria. On cranial nerve assessment, pupils are 3 mm bilateral, round and reactive to light and
accommodation. Visual erickson are full. Extraocular movements are intact. There is no facial asymmetry. Hearing is intact bilaterally to normal conversation volume. Tongue palate and uvula are midline. Sternocleidomastoid strengths are full
bilaterally. Motor strengths are 4+/5 right upper and lower extremities and 5/5 left upper and lower extremities on medical research [place] scale. There is drift in the RUE and RLE. No involuntary movement noted. Deep tendon reflexes are 2+
bilateral upper and lower extremities and Babinski is absent bilaterally. Sensations of pain, touch, temperature and vibration are intact and bilaterally symmetrical. There was no extinction noted on double simultaneous stimulation. Coordination is
intact by finger to nose bilaterally.
Lab Results: See below.
Neuro Imaging:
1. CT Head 02/21/24: No acute intracranial abnormality noted. 4 mm focus of well-defined diminished attenuation/encephalomalacia along superior margin of the left cerebellum. Possibly related to remote trauma or small chronic infarct. 5 mm rounded
focus of calcification in the anterior superior right paramidline frontal region. Possibly osseous/exostosis origin or calcified extra-axial meningioma.
Differentials for the patient's presentation include:
1. Complicated migraine possibly producing symptomatology.
2. Ischemic stroke possibly producing symptoms.
3. Functional neurological disorder possible.
Patient has the following risk factors for their symptoms: CAD, NIDDM, anxiety/stress, hx migraines, family history of migraine.
IV Tenecteplase/IAT candidacy: She is not a candidate for TNK/IAT due to outside of time window.
Recommendations:
-Continue DAPT. If MRI brain is negative for stroke, would discontinue Plavix and continue aspirin 81mg daily only.
-Goal normotension.
-MRI brain noncontrast ordered/pending.
-Provide prochlorperazine 10mg x1 now for headache. Continue Tylenol PRN headache. If MRI is negative for stroke, can provide Imitrex 50mg PO, if still no relief can repeat dose tomorrow and provide a one time dose of IV steroids.
-TTE pending per Cardiology.
-If MRI brain demonstrates a stroke, LDL goal will be <70. LDL is 87.
-Goal normoglycemia, hbA1c is 6.0.
-NIHSS and neurological checks per unit guidelines.
-Provide patient with a stroke education packet.
-PT/OT/ST evaluations.
-DVT prophylaxis.
-Will follow pending results.
Discussed patient care with: Dr. Peng, the patient
Vital Signs and Labs
-
Vital Signs and Labs:
Vital Signs
Temp Pulse Resp BP Pulse Ox
98 F 60 17 130/64 98
02/22/24 07:44 02/22/24 07:44 02/22/24 07:44 02/22/24 07:44 02/22/24 07:44
Lab Results
02/22/24 05:12
02/21/24 15:39
Sodium 140 mmol/L (135-145) 02/21/24 15:39
Potassium 4.2 mmol/L (3.5-5.1) 02/21/24 15:39
BUN 17 mg/dl (7-17) 02/21/24 15:39
Glucose 95 mg/dl (70-99) 02/21/24 15:39
Calcium 9.4 mg/dl (8.4-10.2) 02/21/24 15:39
LDL Cholesterol, Calc 87 mg/dl 02/22/24 05:12
Vitamin B12 916 pg/ml (239-931) 02/22/24 05:12
Medications
-
Active Medications
Generic Name Dose Route Start Last Admin
Trade Name Freq PRN Reason Stop Dose Admin
Acetaminophen 650 mg 02/21/24 23:20
Acetaminophen 650 Mg Rectal Suppository RECTAL 03/20/24 23:19
Q4HPRN PRN
MAHAN, mild pain, or temp >100.4F
Acetaminophen 650 mg 02/21/24 23:20 02/22/24 08:01
Acetaminophen 325 Mg Tablet PO 03/20/24 23:19 650 mg
Q4HPRN PRN Administration
MAHAN, mild pain, or temp >100.4F
Aspirin 81 mg 02/22/24 08:00 02/22/24 08:00
Aspirin 81 Mg Chewable Tablet PO 03/21/24 07:59 81 mg
DAILY EZ Administration
Clopidogrel Bisulfate 75 mg 02/22/24 08:00 02/22/24 08:01
Clopidogrel 75 Mg Tablet PO 03/21/24 07:59 75 mg
DAILY EZ Administration
Pantoprazole Sodium 40 mg 02/22/24 08:00 02/22/24 08:01
Protonix 40 Mg Iv Push IV 03/21/24 07:59 40 mg
DAILY EZ Administration
Sodium Chloride 0 flush 02/21/24 22:00
Sodium Chloride 0.9% (Flush) Syringe IV 03/20/24 21:59
PER PROTOCOL EZ
Sodium Chloride 10 ml 02/22/24 08:00 02/22/24 08:01
Sodium Chloride 0.9% (Preservative Free) 10 Ml Vial IV 03/21/24 07:59 10 ml
DAILY EZ Administration
Home Medications
�Medication �Instructions �Recorded
Methylcobalamin 1,000 mcg PO DAILY 02/22/24
acetaminophen 500 mg tablet 500 mg PO TIDPRN PRN mild pain 02/22/24
(Tylenol Extra Strength)
alirocumab 75 mg/mL subcutaneous 75 mg SC Q2W 02/22/24
pen injector (Praluent Pen)
ascorbic acid-ascorbate 15 ml PO DAILY 02/22/24
calcium-ascorbate sod 500 mg/15 mL
oral liquid (Vitamin C)
aspirin 81 mg chewable tablet 81 mg PO HS 02/22/24
diclofenac epolamine 1.3 % 1 patch topical BID right 02/22/24
transdermal 12 hour patch shoulder/neck
lorazepam 0.5 mg tablet 0.5 mg PO HS 02/22/24
metformin 500 mg tablet 500 mg PO DAILY 02/22/24
tretinoin 0.025 % topical cream 1 applic topical HS face 02/22/24
NIH Stroke Score
Subsequent NIH Scale
Date of Subsequent NIH Scale: 02/22/24
Time of Subsequent NIH Scale: 09:00
NIH Stroke Score
Level of Consciousness: 0 - Alert
LOC Questions: 0-Answers both correctly
LOC Commands: 0-Performs both correctly
Best Horizontal Gaze: 0-Normal
Visual Erickson: 0=Normal, no visual loss
Facial Palsy: 0=Normal, symmetrical
Motor - Right Arm: 1=Drift < 10 seconds
Motor - Left Arm: 0=No drift 10 seconds
Motor - Right Le-Drift < 5 seconds
Motor - Left Le-No drift 5 seconds
Limb Ataxia: 0-Absent
Sensation: 1-Mild loss
Best Language: 0-No aphasia
Dysarthria: 0-Normal
Extinction and Inattention: 0-No abnormality
Total Score:: 3

Documented by User: Jorge Peng MD 02/22/24 12:01
NIH Stroke Score
NIH Stroke Score
Total Score:: 3
[2024-02-22] MEDS: LOW STRENGTH ASPIRIN 81 MG PO (08:00)
[2024-02-22] MEDS: TYLENOL 650 MG PO (08:01)
[2024-02-22] MEDS: PROTONIX IV 40 MG IV (08:01)
[2024-02-22] MEDS: PLAVIX 75 MG PO (08:01)
[2024-02-22] MEDS: NSS (PRESERVATIVE FREE) 10 ML IV (08:01)
[2024-02-22 08:15] LABS: VerifyNow Aspirin 377 ARU
--- NOTE | 2024-02-22 08:18 | PHANOTE ---
02/22/2024, med rec tech, spoke to pt. to obtain their med. history; [facility]; pt. has no [facility] records and this med. is not in pt.'s pharmacy fill data.
--- NOTE | 2024-02-22 08:34 | CON.CAR ---
Addendum entered and electronically signed by Jovany Harrell MD 02/22/24 10:56:
Patient seen and examined in collaboration with DIRECTOR DIVERSITY; agree with below.
-Patient underwent CABG 1 year ago; presenting with atypical, reproducible chest pain to palpation on examination.
-EKG is unremarkable, and cardiac enzymes are normal; no objective signs suggestive of ACS.
-Will obtain an echocardiogram to thoroughly assess baseline cardiac function; however, results will not change current recommendations/management.
-Continue current cardiac medications; patient can follow-up with her primary Mot[employer] as scheduled.
Original Note:
Consultation
Consultation Request
Date/Time Consultation Requested: 02/21/24 10p
Date/Time Consultation Performed: 02/22/24 8a
Requesting Provider: AUTUMN Hayes
Performing Provider: AUTUMN Herman for Dr. Harrell
Reason for Consultation: chest pressure
Medical History
-
Chief Complaint: right sideded weakness
History of Present Illness:
Mrs. Chao is a 63 yo female with CAD s/p CABG x 4 02/2023 [facility] HLD, GERD, hiatal hernia, TIA 2020 and IBS, who presents to the ER with c/o right sided weakness/tingling feeling when she woke
up yesterday morning. She states 'going for a drive to calm me down' and ended up in [facility]. CT head negative for acute abnormality. She is admitted to the hospitalist service and we are consulted for chest pressure symptoms that have been
constant for months. Troponin x 3 < 0.012 and EKG is negative for acute ischemia. She states having a nuclear stress test 11/2023 that was abnormal so her hob grinder ordered a CTA that showed patent bypass grafts and 'opacities', per her report.
She also had a GI appointment in [place] recently and is scheduled for an EGD 03/14/24.
Past Medical History
Past Medical History: Other (as above )
Past Surgical History: Appendectomy, Cardiac (CABG x4 2023), and Gynecological (hysterectomy)
Social History
Tobacco: Non-Smoker
Alcohol: Occasional
Personal:
Living: With Family
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
Family History
Family History: Reviewed & Not Pertinent
Allergies / Home Medications
Allergy/AdvReac Type Severity Reaction Status Date / Time
propofol Allergy Unknown Verified 02/21/24 15:36
Ewdebvr-HPM-FeQ Reductase Allergy Unknown Verified 02/21/24 15:36
Inhibitor
�Medication �Instructions �Recorded �Confirmed �Type
Methylcobalamin 1,000 mcg PO DAILY 02/22/24 02/22/24 History
acetaminophen 500 mg tablet 500 mg PO TIDPRN PRN mild pain 02/22/24 02/22/24 History
(Tylenol Extra Strength)
alirocumab 75 mg/mL subcutaneous 75 mg SC Q2W 02/22/24 02/22/24 History
pen injector (Praluent Pen)
ascorbic acid-ascorbate 15 ml PO DAILY 02/22/24 02/22/24 History
calcium-ascorbate sod 500 mg/15 mL
oral liquid (Vitamin C)
aspirin 81 mg chewable tablet 81 mg PO HS 02/22/24 02/22/24 History
diclofenac epolamine 1.3 % 1 patch topical BID right 02/22/24 02/22/24 History
transdermal 12 hour patch shoulder/neck
lorazepam 0.5 mg tablet 0.5 mg PO HS 02/22/24 02/22/24 History
metformin 500 mg tablet 500 mg PO DAILY 02/22/24 History
tretinoin 0.025 % topical cream 1 applic topical HS face 02/22/24 02/22/24 History
Review of Systems
-
History Source: Patient
All other systems: Negative unless noted
Physical Exam
Vital Signs
Temp Pulse Resp BP Pulse Ox
98 F 60 17 130/64 98
02/22/24 07:44 02/22/24 07:44 02/22/24 07:44 02/22/24 07:44 02/22/24 07:44
Lab Results
02/22/24 05:12
02/21/24 15:39
Troponin I < 0.012 ng/ml 02/21/24 21:33
Physical Exam
General: Well Developed, Well Nourished and No Apparent Distress
HEENT: Normocephalic, Anicteric and Moist Mucous Membranes
Respiratory: Clear and Non Labored Respirations
Cardiac: S1/S2 and Regular Rhythm
Breast: Deferred by me
GI: Soft, Non Tender, Non Distended and Normal Bowel Sounds
Rectal: Deferred by Provider
Genito-urinary: Clear Urine
Musculoskeletal: No Clubbing, No Cyanosis and No Edema
Skin: Warm and Dry
Neuro: AO x 3
Hematologic/Lymphatic: No Lymphadenopathy
Psych: Calm
Impression / Plan
-
Chest pressure - constant for months.
- seen by hob grinder recently with nuclear stress test and CTA that showed patent bypass grafts, will obtain records.
- EKG w/o ischemia.
- troponin < 0.012 x 3.
- continue ASA.
- check echo.
Right sided weakness - acute yesterday.
- h/o TIA 2020.
- head CT negative.
- admitted for observation.
- MRI ordered.
HLD - stable on Praluent, continue.
GERD - stable.
- has hiatal hernia.
- GI eval recently with plans for EGD 03/14/24.
Data Reviewed
-
EKG: Tracing Personally Visualized and interpreted (NSR 70 bpm)
CT Scan: Report Reviewed by me (head: negative for acute abnormality)
Labs: Labs Reviewed by me
Old Records: Requested
[2024-02-22 09:41] LABS: TSH Reflex To Free T4 0.95 uIU/ml (0.47-4.68)
[2024-02-22 09:45] LABS: Ferritin 25.4 ng/ml (11.1-264.0)
--- NOTE | 2024-02-22 11:13 | PTOTSP ---
Video Swallow Examination
Oral/pharyngeal swallow deemed within functional limits without aspiration or significant pharyngeal stasis. Observation of esophagus in upright position was unremarkable in lateral view.
Recommend
1. Regular solids and thin liquids
2. Avoid overly dry/dense solids
3. Intersperse sips of liquid between bites of food.
4. Consider ENT follow up after discharge due to vocal quality changes and symptoms that can be associated with laryngospasms. OP Voice therapy pending ENT results.
--- NOTE | 2024-02-22 12:00 | W.PN.HOSP.TC ---
Today's Communication/Plan
-
see bold
Assessment / Plan
Assessment / Plan
Gen: NAD, AAOx3.
Eyes: EOMI, PERRLA, no scleral icterus.
Neck: supple.
CV: RRR, +S1/S2, no m/r/g.
Resp: CTAB, no rales, wheezes, or rhonchi.
Abd: +BS, soft, NT, ND
Skin: No rashes.
Neuro: CN 2-12 intact, RUE 4/5, RLE 3/5.
Psych: Normal mood and affect.
CT brain: No acute intracranial abnormality noted. 4 mm focus of well-defined diminished attenuation/encephalomalacia along superior margin of the left cerebellum. Possibly related to remote trauma or small chronic infarct. 5 mm rounded focus of
calcification in the anterior superior right paramidline frontal region. Possibly osseous/exostosis origin or calcified extra-axial meningioma.
Right-sided paresthesias/weakness:
-case discussed with Dr. Peng
-check MRI/A head and neck
-possibly migraines +/- functional neurological disorder
-Note, history of CRPS in right arm. Patient reports that she has had 2 rotator cuff tears in her right shoulder and also has had resulting injury to her median, ulnar, and axillary nerves in the right upper extremity
-cont home ASA/Plavix
-allergy to statin
Chest pain:
-h/o CABG 1 year ago (CAD)
-ECG without acute ischemic changes
-Trops NEG x 3
-check echo
-cont home ASA/Plavix and f/u with outpatient stock unloader as per cardiology consult here
-case discussed with Dr. Adams Hawkins (pt's stock unloader at [facility]). He stated that she has been intolerant to beta-edmond. She is on Lasix 20 mg daily as needed and Praluent (as intolerant to statins).
Other problems:
GERD: cont PPI
Obesity due to excess calories
DM2: a1c 6.0%, cont Metformin on discharge
Obesity due to excess calories: Encourage weight loss. Affects all aspects of care.
Schatzki's ring
Anxiety
Depression
PTSD
FULL/Lovenox
Anticipated Discharge: Within 24 hours
Subjective/Interval History
-
Date of Service: February 22, 2024
Denies chest pain
Objective Data
-
Labs:
Laboratory Results
02/22/24
05:12
WBC 6.5
Hgb 13.2
Hct 40.2
Plt Count 217
Vital Signs:
Vital Signs
Temp Pulse Resp BP Pulse Ox
98 F 60 17 130/64 98
02/22/24 07:44 02/22/24 07:44 02/22/24 07:44 02/22/24 07:44 02/22/24 07:44
[2024-02-22] MEDS: TYLENOL 1000 MG PO ×2 (13:38→20:42)
[2024-02-22] MEDS: LOVENOX 40 MG SC (17:29)
[2024-02-23] MEDS: TYLENOL 1000 MG PO (00:10)
[2024-02-23 00:12] LABS: Glucose - Point of Care 93 mg/dl (70-99)
[2024-02-23] MEDS: COMPAZINE 5 MG IV (01:10)
[2024-02-23] MEDS: ATIVAN 0.5 MG PO ×2 (03:15→21:44)
[2024-02-23 03:29] VITALS: BP 141/68
--- NOTE | 2024-02-23 03:30 | PTCARENOTE ---
Pt called stating that she had headache and her brain feels like it 'dillon', dizziness and nausea. Pt states that these sx are similar to before. VSS and INH is the same (3). BS=93. Pt denies chest pain, or pain in any other area except the
headache. Tylenol given for pain and also ice pack. Pt came out out a little later complaining that she needs to go out to get a 'fresh air', and that she can't breathe. Pt's SpO2=96-100% on RA. Pt appers very anxious, and shaky. Pt states that she
normally takes lorazepam 0.5mg HS as needed. A fan provided to patient. Pt's sister suggested via phone a paper bag for pt to use to help with anxiety. Lorazepam 0.5mg PO given as per order. Pt states that she will try to get some sleep. WC=752/68,
HR=69, T=97.9. Will continue to monitor the pt.
[2024-02-23 07:35] VITALS: BP 115/66
--- NOTE | 2024-02-23 08:51 | W.PN.NEURO.1 ---
Today's Communication / Plan
-
-Continue DAPT therapy for now, if brain MRI is negative for acute stroke then can stop clopidogrel from a neurologic perspective as this is not TIA
-If MRI brain is negative for acute stroke then would give 50 mg sumatriptan p.o., can repeat the dose once after 1 hour if there is still some degree of burning head pain present
physical therapy
Neuro Assessment/Plan
Assessment
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 Possibly a right-sided parasagittal meningioma as seen with calcification in that area , unrelated to the patient's symptomatology.
Assessment: Rule out ischemic stroke on the left side of the brain. Cerebellar infarct on the left would not produce the symptoms.
Either migraine type disorder and additionally functional neurologic disorder may be present, possibly triggered by chest pain history of right sided shoulder complex regional pain syndrome.
Plan
Recommendations
-Continue DAPT therapy for now, if brain MRI is negative for acute stroke then can stop clopidogrel from a neurologic perspective as this is not TIA
-If MRI brain is negative for acute stroke then would give 50 mg sumatriptan p.o., can repeat the dose once after 1 hour if there is still some degree of burning head pain present
physical therapy
Subjective/Objective
Subjective Data
Date of Service: February 23, 2024
Objective Data
Vital Signs
Temp Pulse Resp BP Pulse Ox
36.6 C 69 20 141/68 97
02/23/24 03:29 02/23/24 03:29 02/23/24 03:29 02/23/24 03:29 02/23/24 03:29
Lab Results
02/22/24 05:12
Sodium 140 mmol/L (135-145) 02/21/24 15:39
Potassium 4.2 mmol/L (3.5-5.1) 02/21/24 15:39
BUN 17 mg/dl (7-17) 02/21/24 15:39
Glucose 95 mg/dl (70-99) 02/21/24 15:39
Calcium 9.4 mg/dl (8.4-10.2) 02/21/24 15:39
LDL Cholesterol, Calc 87 mg/dl 02/22/24 05:12
Vitamin B12 916 pg/ml (023-931) 02/22/24 05:12
Patient Allergies
propofol Allergy (Verified 02/21/24 15:36)
Unknown
[id number]-WRH-TsN Reductase Inhibitor Allergy (Verified 02/21/24 15:36)
Unknown
Data Reviewed
-
CT Head: Report Reviewed
Labs: Report Reviewed
Reviewed with: Physician and Patient
Old Records: Summarized
Medications
-
Medications:
Generic Name Dose Route Start Last Admin
Trade Name Freq PRN Reason Stop Dose Admin
Acetaminophen 650 mg 02/21/24 23:20 02/22/24 08:01
Acetaminophen 325 Mg Tablet PO 03/20/24 23:19 650 mg
Q4HPRN PRN Administration
MAHAN, mild pain, or temp >100.4F
Acetaminophen 1,000 mg 02/22/24 12:00 02/23/24 00:10
Acetaminophen 500 Mg Tablet PO 02/24/24 06:01 1,000 mg
Q6H EZ Administration
Aspirin 81 mg 02/22/24 08:00 02/22/24 08:00
Aspirin 81 Mg Chewable Tablet PO 03/21/24 07:59 81 mg
DAILY EZ Administration
Clopidogrel Bisulfate 75 mg 02/22/24 08:00 02/22/24 08:01
Clopidogrel 75 Mg Tablet PO 03/21/24 07:59 75 mg
DAILY EZ Administration
Enoxaparin Sodium 40 mg 02/22/24 18:00 02/22/24 17:29
Enoxaparin Sodium 40 Mg/0.4 Ml Syringe SC 03/21/24 17:59 40 mg
QPM EZ Administration
Furosemide 20 mg 02/22/24 12:29
Furosemide 20 Mg Tablet PO 03/21/24 12:28
DAILYPRN PRN
wt gain > 3 lbs
Pantoprazole Sodium 40 mg 02/22/24 08:00 02/22/24 08:01
Protonix 40 Mg Iv Push IV 03/21/24 07:59 40 mg
DAILY EZ Administration
Sodium Chloride 0 flush 02/21/24 22:00
Sodium Chloride 0.9% (Flush) Syringe IV 03/20/24 21:59
PER PROTOCOL EZ
Sodium Chloride 10 ml 02/22/24 08:00 02/22/24 08:01
Sodium Chloride 0.9% (Preservative Free) 10 Ml Vial IV 03/21/24 07:59 10 ml
DAILY EZ Administration
[2024-02-23] MEDS: TYLENOL PO ×4 (08:58→17:33)
[2024-02-23 11:42] VITALS: BP 130/74
[2024-02-23 11:43] LABS: Blood Urea Nitrogen 17 mg/dl (7-17); Calcium 9.8 mg/dl (8.4-10.2); Carbon Dioxide 26 mmol/L (22-30); Chloride 107 mmol/L (98-107); Estimated Creatinine Clearance 79 ml/min; Glucose 107 mg/dl (70-99); Potassium 4.6 mmol/L (3.5-5.1); Sodium 137 mmol/L (135-145); eGFR > 60.00
[2024-02-23] MEDS: PROTONIX IV IV (12:33)
[2024-02-23] MEDS: NSS (PRESERVATIVE FREE) IV (12:33)
[2024-02-23] MEDS: LOW STRENGTH ASPIRIN 81 MG PO (14:41)
--- NOTE | 2024-02-23 15:24 | CM ---
Cm met with patient in room. Patient confirmed demographics. Patient lives independently with . Patient confirmed that she has a PCP with the [place]. Patient is patriated to the [facility]. Patient uses [facility] for medication services as well.
Patient denies VN, or SNF. Patient uses a cane and walker for ambulation assistance when she's outside.
Patient expressed that she felt bad about what she describes as a panic attack last evening. Patient endorses that she has a history of PTSD and felt trapped. At home, patient manages her anxiety and PTSD symptoms by 'going outside for fresh air'.
CM encouraged patient to request medication for sleep and anxiety as needed to assist her through her night time symptoms. Patient was thankful, but appeared anxious.
OBS letter given and questions answered.
PLAN: home no needs.
[2024-02-23] MEDS: PLAVIX PO (15:37)
[2024-02-23 15:58] VITALS: BP 116/86
--- NOTE | 2024-02-23 16:37 | W.PN.HOSP.TC ---
Today's Communication/Plan
-
Still persistent symptoms we will proceed with MRI of the cervical spine
Assessment / Plan
Assessment / Plan
63-year-old female presented with right-sided paresthesias and weakness.
CT brain: No acute intracranial abnormality noted. 4 mm focus of well-defined diminished attenuation/encephalomalacia along superior margin of the left cerebellum. Possibly related to remote trauma or small chronic infarct. 5 mm rounded focus of
calcification in the anterior superior right paramidline frontal region. Possibly osseous/exostosis origin or calcified extra-axial meningioma.
Neuro exam on examination right side is mildly weaker than the left so as the sensations on the right side is slightly altered
No facial droop
Cardiovascular system S1-S2 appreciated
Chest clear to auscultation
# Right-sided paresthesias/weakness:
-case discussed with Dr. Peng
-MRI/MRA-MRA normal. MRI with 5 mm area in the right cerebellar hemisphere consistent with old infarct
-possibly migraines +/- functional neurological disorder
-Note, history of CRPS in right arm. Patient reports that she has had 2 rotator cuff tears in her right shoulder and also has had resulting injury to her median, ulnar, and axillary nerves in the right upper extremity
-cont home ASA. Stop Plavix per neurology notes
-Allergy to statin. On Praluent
#Chest pain:
-h/o CABG 1 year ago (CAD)
-ECG without acute ischemic changes
-Trops NEG x 3
-Echo 02/22/2024-LV ejection fraction 65 to 70% normal RV size and function. No wall motion abnormality
-cont home ASA and f/u with outpatient pipe smoking machine offbearer as per cardiology consult here-no further recommendations
-Dr Napoles discussed with Dr. Adams Hawkins (pt's pipe smoking machine offbearer at [facility]). He stated that she has been intolerant to beta-edmond. She is on Lasix 20 mg daily as needed and Praluent (as intolerant to statins).
#GERD/Schatzki's ring: cont PPI
#Obesity due to excess calories
#DM2: a1c 6.0%, cont Metformin on discharge
#Obesity due to excess calories: Encourage weight loss. Affects all aspects of care.
#Anxiety/Depression/PTSD
#DVT prophylaxis-Lovenox
#FULL CODE
D/ W RN
Anticipated Discharge: Within 24 hours
Subjective/Interval History
-
Date of Service: February 23, 2024
Objective Data
-
Labs:
Laboratory Results
02/23/24
11:07
Sodium 137
Potassium 4.6
Chloride 107
Carbon Dioxide 26
BUN 17
Creatinine 0.7
Glucose 107 H
Calcium 9.8
Vital Signs:
Vital Signs
Temp Pulse Resp BP Pulse Ox
97.7 F 92 16 116/86 93
02/23/24 15:58 02/23/24 15:58 02/23/24 15:58 02/23/24 15:58 02/23/24 15:58
[2024-02-23] MEDS: LOVENOX 40 MG SC (17:22)
[2024-02-23 19:30] VITALS: BP 122/60
--- NOTE | 2024-02-23 19:37 | W.PN.UPDATE ---
Update Note
Progress Note Update
RN notified PROFESSOR OF ECONOMICS, patient stated she takes Metformin 500mg ER daily, and not the regular Metformin. BS 107 this AM. Will add Metformin ER 500mg daily.
[2024-02-23] MEDS: GLUCOPHAGE XR EXTENDED RELEASE 500 MG PO (20:40)
[2024-02-23 23:50] VITALS: BP 123/57
[2024-02-24] MEDS: TYLENOL PO ×2 (00:48→06:34)
[2024-02-24 03:49] VITALS: BP 137/67
[2024-02-24 07:00] VITALS: BP 131/82
[2024-02-24] MEDS: LOW STRENGTH ASPIRIN 81 MG PO (09:50)
[2024-02-24] MEDS: VITAMIN B-12 1000 MCG PO (09:50)
[2024-02-24] MEDS: NSS (PRESERVATIVE FREE) IV (09:51)
[2024-02-24] MEDS: PROTONIX IV IV (09:51)
--- NOTE | 2024-02-24 14:08 | W.PN.HOSP.TC ---
Today's Communication/Plan
-
Discharge
Assessment / Plan
Assessment / Plan
63-year-old female presented with right-sided paresthesias and weakness.
CT brain: No acute intracranial abnormality noted. 4 mm focus of well-defined diminished attenuation/encephalomalacia along superior margin of the left cerebellum. Possibly related to remote trauma or small chronic infarct. 5 mm rounded focus of
calcification in the anterior superior right paramidline frontal region. Possibly osseous/exostosis origin or calcified extra-axial meningioma.
Neuro exam on examination
No facial droop, patient states that she is feels slight weakness on the right arm and right leg but headache is gone now.
Cardiovascular system S1-S2 appreciated
Chest clear to auscultation
# Right-sided paresthesias/weakness:
-Likely related to migraine is improving
-case discussed with Dr. Peng
-MRI/MRA-MRA normal. 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
-Possibly Migraines +/- functional neurological disorder
-Note, history of CRPS in right arm. Patient reports that she has had 2 rotator cuff tears in her right shoulder and also has had resulting injury to her median, ulnar, and axillary nerves in the right upper extremity
-Cont home ASA. Stopped Plavix per neurology .
-Allergy to statin. On Praluent
-MRI of the cervical spine is normal
#Chest pain:
-h/o CABG 1 year ago (CAD)
-ECG without acute ischemic changes
-Trops NEG x 3
-Echo 02/22/2024-LV ejection fraction 65 to 70% normal RV size and function. No wall motion abnormality
-cont home ASA and f/u with outpatient reading professor as per cardiology consult here-no further recommendations
-Dr Napoles discussed with Dr. Adams Hawkins (pt's reading professor at [facility]). He stated that she has been intolerant to beta-edmond. She is on Lasix 20 mg daily as needed and Praluent (as intolerant to statins).
#GERD/Schatzki's ring: cont PPI
#Obesity due to excess calories
#DM2: a1c 6.0%, cont Metformin
#Obesity due to excess calories: Encourage weight loss. Affects all aspects of care.
#Anxiety/Depression/PTSD
#DVT prophylaxis-Lovenox
#FULL CODE
Discussed with neurology. No further testing recommended
D/ W RN
Patient ambulating well to the bathroom and back.
Patient was seen by Mita for discharge home per verbal report..
Patient wants to go home. She is aware that she could continue further workup as outpatient with outpatient neurology if she continues to have any symptoms of numbness.
Detail discussed with the patient today
Discussed with neurology
Discussed with nursing
Total discharge condition time 33 minutes
Anticipated Discharge: Today
Subjective/Interval History
-
Date of Service: February 24, 2024
Objective Data
-
Vital Signs:
Vital Signs
Temp Pulse Resp BP Pulse Ox
97.6 F 77 14 131/82 96
02/24/24 07:00 02/24/24 07:00 02/24/24 07:00 02/24/24 07:00 02/24/24 07:00
I&O
02/23/24 02/24/24 02/25/24
06:59 06:59 06:59
Intake Total 750 / 750
Balance 750 / 750
[2024-02-24] MEDS: GLUCOPHAGE XR EXTENDED RELEASE PO (14:09)
--- NOTE | 2024-02-24 14:14 | W.PN.HOSP.TC ---
Today's Communication/Plan
-
Discharge
Assessment / Plan
Assessment / Plan
63-year-old female presented with right-sided paresthesias and weakness.
CT brain: No acute intracranial abnormality noted. 4 mm focus of well-defined diminished attenuation/encephalomalacia along superior margin of the left cerebellum. Possibly related to remote trauma or small chronic infarct. 5 mm rounded focus of
calcification in the anterior superior right paramidline frontal region. Possibly osseous/exostosis origin or calcified extra-axial meningioma.
Neuro exam on examination
No facial droop, patient states that she is feels slight weakness on the right arm and right leg but headache is gone now.
Cardiovascular system S1-S2 appreciated
Chest clear to auscultation
# Right-sided paresthesias/weakness:
-Likely related to migraine is improving
-case discussed with Dr. Peng
-MRI/MRA-MRA normal. 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
-Possibly Migraines +/- functional neurological disorder
-Note, history of CRPS in right arm. Patient reports that she has had 2 rotator cuff tears in her right shoulder and also has had resulting injury to her median, ulnar, and axillary nerves in the right upper extremity
-Cont home ASA. Stopped Plavix per neurology .
-Allergy to statin. On Praluent
-MRI of the cervical spine is normal
#Chest pain:
-h/o CABG 1 year ago (CAD)
-ECG without acute ischemic changes
-Trops NEG x 3
-Echo 02/22/2024-LV ejection fraction 65 to 70% normal RV size and function. No wall motion abnormality
-cont home ASA and f/u with outpatient mold shaker as per cardiology consult here-no further recommendations
-Dr Napoles discussed with Dr. Adams Hawkins (pt's mold shaker at [facility]). He stated that she has been intolerant to beta-edmond. She is on Lasix 20 mg daily as needed and Praluent (as intolerant to statins).
#GERD/Schatzki's ring: cont PPI
#Obesity due to excess calories
#DM2: a1c 6.0%, cont Metformin
#Obesity due to excess calories: Encourage weight loss. Affects all aspects of care.
#Anxiety/Depression/PTSD
#DVT prophylaxis-Lovenox
#FULL CODE
Discussed with neurology. No further testing recommended
D/ W RN
Patient ambulating well to the bathroom and back.
Patient was seen by Mita for discharge home per verbal report..
Patient wants to go home. She is aware that she could continue further workup as outpatient with outpatient neurology if she continues to have any symptoms of numbness.
Detail discussed with the patient today
Discussed with neurology
Discussed with nursing
Total discharge condition time 33 minutes
Anticipated Discharge: Today
Subjective/Interval History
-
Date of Service: February 24, 2024
Objective Data
-
Vital Signs:
Vital Signs
Temp Pulse Resp BP Pulse Ox
97.6 F 77 14 131/82 96
02/24/24 07:00 02/24/24 07:00 02/24/24 07:00 02/24/24 07:00 02/24/24 07:00
I&O
02/23/24 02/24/24 02/25/24
06:59 06:59 06:59
Intake Total 750 / 750
Balance 750 / 750
--- NOTE | 2024-02-24 14:25 | W.DS.TRANS ---
Addendum entered and electronically signed by Tnea Ibarra MD 02/24/24 14:40:
Dictation- [id number]
Original Note:
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
-
Discharge Instructions:
Discharge Diagnosis/Procedures Migraine with right-sided weakness and numbness,
GERD, diabetes, anxiety coronary artery disease
, 5 mm right cerebellar infarct-old
Diet 2 Gram Sodium,Diabetic, Carb Controlled
Activity As tolerated
Driving Restrictions As prior to admission
Instructions:
Stand-Alone Forms:
Changes to Home Medications: Yes
Discharge Medications:
DC Medications w/original date entered in [employer]
acetaminophen 500 mg tablet (Tylenol Extra Strength) 500 mg PO TIDPRN PRN mild pain 02/22/24
diclofenac epolamine 1.3 % transdermal 12 hour patch 1 patch topical BID right shoulder/neck 02/22/24
tretinoin 0.025 % topical cream 1 applic topical HS face 02/22/24
Methylcobalamin 1,000 mcg PO DAILY Supplement ##0 02/24/24
alirocumab 75 mg/mL subcutaneous pen injector (Praluent Pen) 75 mg SC Q2W High cholesterol #0 mL 02/24/24
ascorbic acid-ascorbate calcium-ascorbate sod 500 mg/15 mL oral liquid (Vitamin C) 15 ml PO DAILY Supplement #0 mL 02/24/24
aspirin 81 mg chewable tablet 81 mg PO DAILY #0 tabs 02/24/24
famotidine 20 mg tablet (Pepcid) 20 mg PO BID Gastrointestinal issue #60 tabs 02/24/24
lorazepam 0.5 mg tablet 0.5 mg PO HS anxiety #0 tabs 02/24/24
metformin 500 mg tablet,extended release 24 hr 500 mg PO DAILY Diabetes #0 tabs 02/24/24
Home Medication Changes
new
Pepscid
Pending Results: No
[2024-02-24 14:41] VITALS: BP 133/68; BP 137/78
[2024-02-24 15:00] VITALS: BP 122/61
--- NOTE | 2024-02-24 15:37 | CM ---
Patient with Dx Right-sided paresthesias/weakness. PT recommends outpatient therapy. OT recommends HH.
Spoke with patient who was preparing for d/c home. Patient stated she has new symptom of myalgia on left side of her face---> message forwarded to Dr Ibarra and nurse. Discharge to be held today per Dr Ibarra. Patient notified her discharge was
being held so she could let her know, who was going to provide a ride home.
Spoke with patient about PT/OT recommendations; patient would like a script for outpatient PT/OT and will [facility] [place] [facility]in the [facility].
Plan request script for outpatient PT/OT on day of d/c.
Plan home with script for outpatient PT/OT.
[2024-02-24] MEDS: LOVENOX SC (18:17)
[2024-02-24] MEDS: GLUCOPHAGE XR EXTENDED RELEASE 500 MG PO (18:17)
[2024-02-24] MEDS: ATIVAN 0.5 MG PO (21:14)
[2024-02-24] MEDS: TYLENOL 650 MG PO (21:35)
[2024-02-24 23:47] VITALS: BP 132/70
[2024-02-25 07:00] VITALS: BP 145/82
[2024-02-25] MEDS: NSS (PRESERVATIVE FREE) IV (09:29)
[2024-02-25] MEDS: LOW STRENGTH ASPIRIN 81 MG PO (09:29)
[2024-02-25] MEDS: GLUCOPHAGE XR EXTENDED RELEASE PO (09:29)
[2024-02-25] MEDS: PROTONIX IV IV (09:30)
[2024-02-25] MEDS: VITAMIN B-12 1000 MCG PO (09:32)
--- NOTE | 2024-02-25 10:12 | CM ---
Patient for discharge today CM updated physician regarding request for outpatient PT/OT prescription. CM will continue to follow for discharge planning needs.
Plan; home with outpatient follow up
[2024-02-25] MEDS: PROTONIX 40 MG PO (10:21)
[2024-02-25] MEDS: VITAMIN C 500 MG PO (10:21)
--- NOTE | 2024-02-25 12:34 | W.PN.HOSP.TC ---
Today's Communication/Plan
-
Discharge
Assessment / Plan
Assessment / Plan
63-year-old female presented with right-sided paresthesias and weakness.
CT brain: No acute intracranial abnormality noted. 4 mm focus of well-defined diminished attenuation/encephalomalacia along superior margin of the left cerebellum. Possibly related to remote trauma or small chronic infarct. 5 mm rounded focus of
calcification in the anterior superior right paramidline frontal region. Possibly osseous/exostosis origin or calcified extra-axial meningioma.
Neuro exam on examination
No facial droop, patient states that she is feels slight weakness on the right arm and right leg but headache is gone now.
Cardiovascular system S1-S2 appreciated
Chest clear to auscultation
# Right-sided paresthesias/weakness:
-Likely related to migraine is improving
-case discussed with Dr. Peng
-MRI/MRA-MRA normal. 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
-Possibly Migraines +/- functional neurological disorder
-Note, history of CRPS in right arm. Patient reports that she has had 2 rotator cuff tears in her right shoulder and also has had resulting injury to her median, ulnar, and axillary nerves in the right upper extremity
-Cont home ASA. Stopped Plavix per neurology .
-Allergy to statin. On Praluent
-MRI of the cervical spine is normal
#Chest pain:
-h/o CABG 1 year ago (CAD)
-ECG without acute ischemic changes
-Trops NEG x 3
-Echo 02/22/2024-LV ejection fraction 65 to 70% normal RV size and function. No wall motion abnormality
-cont home ASA and f/u with outpatient flyer repairer as per cardiology consult here-no further recommendations
-Dr Napoles discussed with Dr. Adams Hawkins (pt's flyer repairer at [facility]). He stated that she has been intolerant to beta-edmond. She is on Lasix 20 mg daily as needed and Praluent (as intolerant to statins).
#GERD/Schatzki's ring: cont PPI
#Obesity due to excess calories
#DM2: a1c 6.0%, cont Metformin
#Obesity due to excess calories: Encourage weight loss. Affects all aspects of care.
#Anxiety/Depression/PTSD
#DVT prophylaxis-Lovenox
#FULL CODE
Discussed with neurology today also .No further testing recommended
D/ W RN
she stayed yesterday due to her head ache.
Feels good and in good spirits. Wants to go home.
D/W Case management
Anticipated Discharge: Today
Subjective/Interval History
-
Date of Service: February 25, 2024
Objective Data
-
Vital Signs:
Vital Signs
Temp Pulse Resp BP Pulse Ox
97.6 F 83 18 145/82 97
02/25/24 07:00 02/25/24 07:00 02/25/24 07:00 02/25/24 07:00 02/25/24 09:05
I&O
02/24/24 02/25/24 02/26/24
06:59 06:59 06:59
Intake Total 750 / 750 620 / 620
Balance 750 / 750 620 / 620
[2024-02-25 12:50] VITALS: BP 136/62
== END 2024-02-25 14:31 | disposition home or self-care (01) ==
LOC: 4 EAST ACU 21:36
PROVIDERS: Clinical Nurse Specialist Family Health; Emergency Medicine; Physician Assistant; ADMITTING PHYSICIAN Hospitalist; ATTENDING PHYSICIAN Hospitalist; CONSULT PHYSICIAN Internal Medicine Cardiovascular Disease; CONSULT PHYSICIAN Student in an Organized Health Care Education/Training Program; EMERGENCY PHYSICIAN Emergency Medicine
DX: G43.909 Migraine, unspecified, not intractable, without status migrainosus (principal); K21.9 Gastro-esophageal reflux disease without esophagitis; Z86.73 Personal history of transient ischemic attack (TIA), and cerebral infarction without residual deficits; I25.10 Atherosclerotic heart disease of native coronary artery without angina pectoris; Z95.1 Presence of aortocoronary bypass graft; F41.8 Other specified anxiety disorders; E11.9 Type 2 diabetes mellitus without complications; E66.09 Other obesity due to excess calories; F43.10 Post-traumatic stress disorder, unspecified
CPT/HCPCS: 70450; 70544; 70548; 70551; 72141; 74230; 80048; 80053; 80061; 82607; 82728; 82962; 83036; 84443; 84484; 85025; 85576; 92523; 92610; 92611; 93005; 93306; 97116; 99285; A9585; G0378